=== PATIENT | female | born 1960 | race Caucasian/White ===

== ENCOUNTER 2024-05-02 12:30 | Outpatient (OUT) | payer BC, SELFPAY ==
--- NOTE | 2024-05-02 12:40 | ECG_ITS ---
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
--- NOTE | 2024-05-02 13:17 | PM.PRESUREVA ---
History of Present Illness History of Present Illness Chief complaint: right ureteral stone Narrative: Patient presents for preadmission testing. The patient reports she has a right sided kidney stone that she discovered after an ER visit in February of this year, she has ongoing back pain and has been to physical therapy, but it is now thought some of her pain could be contributed to the stone. She states at this time she is not having any urinary complaints. She denies hematuria, dysuria, fever, abdominal pain, or any other complaints. Review of Systems ROS Narrative REVIEW OF SYSTEMS: Negative except as stated in HPI, ten or more systems reviewed. Constitutional: No fever, chills, weakness ENT: No sore throat or epistaxis Cardiovascular: No edema, chest pain, palpitations, or activity intolerance Respiratory: Chronic shortness of breath and wheezing, no acute cough Musculoskeletal: Chronic back pain Gastrointestinal: No abdominal pain, constipation, diarrhea, or vomiting Genitourinary: No dysuria or hematuria Neurological: No numbness, tingling, weakness, or headache Psychiatric: No mood changes PFSH PFSH Medical History (Updated 05/02/24 @ 12:59 by Gertrudis Duckworth NP) DDD (degenerative disc disease) Arthritis ?M19.90 - Unspecified osteoarthritis, unspecified site (ICD-10) Back pain ?M54.9 - Dorsalgia, unspecified (ICD-10) Anxiety ?F41.9 - Anxiety disorder, unspecified (ICD-10) Sleep apnea ?G47.30 - Sleep apnea, unspecified (ICD-10) Chronic obstructive pulmonary disease ?J44.9 - Chronic obstructive pulmonary disease, unspecified (ICD-10) High cholesterol ?E78.00 - Pure hypercholesterolemia, unspecified (ICD-10) Hypertension ?I10 - Essential (primary) hypertension (ICD-10) Hypothyroidism ?E03.9 - Hypothyroidism, unspecified (ICD-10) S/P extracorporeal shock wave therapy ?Z98.890 - Other specified postprocedural states (ICD-10) Kidney stones ?N20.0 - Calculus of kidney (ICD-10) Ureteral stone ?N20.1 - Calculus of ureter (ICD-10) Surgical History (Updated 05/02/24 @ 12:59 by Gertrudis Duckworth NP) History of hernia repair ?Z98.890 - Other specified postprocedural states (ICD-10) ?Z87.19 - Personal history of other diseases of the digestive system (ICD-10) History of hysterectomy ?Z90.710 - Acquired absence of both cervix and uterus (ICD-10) H/O thyroidectomy ?E89.0 - Postprocedural hypothyroidism (ICD-10) S/P total hip arthroplasty ?Z96.649 - Presence of unspecified artificial hip joint (ICD-10) Family History (Updated 05/02/24 @ 12:59 by Gertrudis Duckworth NP) Other Cancer Family history of hypertension Family history of myocardial infarction Family history of stroke Social History (Updated 05/02/24 @ 12:53 by Gertrudis Duckworth NP) Within the past year, how often did you have a drink containing alcohol: 2-3 times a week Smoking status: Former smoker Highest level of school completed/degree received: high school graduate Meds Home Medications and Allergies Home Medications ?Medication ?Instructions ?Recorded ?Confirmed ?Type albuterol sulfate 90 mcg/actuation 2 inh inhalation Q4H PRN shortness 05/02/24 05/02/24 History aerosol inhaler of breath or wheezing brexpiprazole 1 mg tablet (Rexulti) 1 mg PO DAILY 05/02/24 05/02/24 History buspirone 10 mg tablet 10 mg PO DAILY 05/02/24 05/02/24 History cetirizine 10 mg tablet (Zyrtec) 10 mg PO DAILY PRN allergy symptoms 05/02/24 05/02/24 History escitalopram oxalate 20 mg tablet 20 mg PO DAILY 05/02/24 05/02/24 History ezetimibe 10 mg tablet 10 mg PO DAILY 05/02/24 05/02/24 History hydroxyzine pamoate 25 mg capsule 25 mg PO Q8H PRN anxiety 05/02/24 05/02/24 History [id number] intramuscular 1 ea IM .[id number] 05/02/24 05/02/24 History levothyroxine 100 mcg tablet 100 mcg PO DAILY 05/02/24 05/02/24 History losartan 50 mg-hydrochlorothiazide 1 tab PO DAILY 05/02/24 05/02/24 History 12.5 mg tablet meloxicam 7.5 mg tablet 7.5 mg PO DAILY 05/02/24 05/02/24 History nitrofurantoin 100 mg PO Q12H 05/02/24 05/02/24 History monohydrate/macrocrystals 100 mg capsule pravastatin 10 mg tablet 10 mg PO DAILY 05/02/24 05/02/24 History tamsulosin 0.4 mg capsule 0.4 mg PO Q24H 05/02/24 05/02/24 History Allergies Allergy/AdvReac Type Severity Reaction Status Date / Time No Known Drug Allergies Allergy Verified 05/02/24 12:48 Exam Narrative Exam Narrative: Constitutional: Awake, alert, comfortable, well-appearing, nontoxic, interactive, vital signs as charted Head: Normocephalic, atraumatic Neck: Supple, normal appearance, normal range of motion, no meningeal signs, no lymphadenopathy Respiratory: No respiratory distress, breath sounds clear Cardiovascular: Regular rate and rhythm, strong and regular heart tones Abdomen: Nontender, normal bowel sounds, soft, no CVA tenderness Musculoskeletal: Normal gait, no swelling or edema Skin: No rashes or induration, no lesions, only visible skin inspected Neuro: No neurological deficits, normal sensation Psychiatric: Oriented ?3, normal affect Assessment and Plan Assessment and Plan (1) Ureteral stone: Plan Cystoscopy, right retrograde, right ureteroscopy, holmium laser, possible right stent placement scheduled with Dr. Abraham May 03, 2024.
[2024-05-02 13:23] LABS: Basophils Absolute Auto 0.1 10^3/uL (0.0-0.1); Basophils Percent Auto 0.9 % (0.2-2.0); Eosinophils Absolute Auto 0.2 10^3/uL (0.0-0.7); Eosinophils Percent Auto 2.2 % (0.9-7.0); Hematocrit 42.5 % (36.0-48.0); Hemoglobin 13.9 g/dL (12.0-16.0); Immature Granulocytes Abs Auto 0.05 10^3/uL (0.00-0.03); Immature Granulocytes Pct Auto 0.5 % (0.0-0.5); Lymphocytes Absolute Auto 2.9 10^3/uL (1.2-3.8); Lymphocytes Percent Auto 30.6 % (20.5-60.0); Mean Corpuscular HGB Conc 32.7 g/dL (29.9-35.2); Mean Corpuscular Hemoglobin 30.4 pg (26.7-34.0); Monocytes Absolute Auto 0.9 10^3/uL (0.3-0.8); Monocytes Percent Auto 9.5 % (1.7-12.0); Neutrophils Absolute Auto 5.3 10^3/uL (1.4-6.5); Neutrophils Percent Auto 56.3 % (43.0-75.0); Platelet Count 219 10^3/uL (150-450); Red Blood Count 4.57 10^6/uL (4.20-5.40); Red Cell Distribution Width 13.4 % (11.0-15.0); White Blood Count 9.5 10^3/uL (4.0-11.0)
[2024-05-02 13:35] LABS: Anion Gap 11.8; BUN Creatinine Ratio 9.7; Calcium 9.7 mg/dL (8.5-10.1); Carbon Dioxide 26.9 mmol/L (21.0-32.0); Chloride 105 mmol/L (98-107); Estimated GFR (African America >60 (>=60 mL/min/1.73m^2); Estimated GFR (Non-African Ame >60 (>=60 mL/min/1.73m^2); Glucose 101 mg/dL (74-106); Potassium 3.7 mmol/L (3.5-5.1); Sodium 140 mmol/L (136-145)
[2024-05-02 13:42] LABS: INR 0.97; Partial Thromboplastin Time 29.1 sec (22.3-36.2); Prothrombin Time 10.3 sec (9.0-11.6)
== END 2024-05-02 12:31 | disposition home or self-care (01) ==
LOC: PST 12:36
PROVIDERS: PCP Nurse Practitioner Family; Visit Provider Urology
DX: Z01.810 Encounter for preprocedural cardiovascular examination (principal); Z01.818 Encounter for other preprocedural examination; Z01.812 Encounter for preprocedural laboratory examination; N20.1 Calculus of ureter
CPT/HCPCS: 80048; 85025; 85610; 85730; 93005; G0463

== ENCOUNTER 2024-05-03 09:28 | Day surgery (SDC) | payer BC, SELFPAY ==
[2024-05-02 13:07] VITALS: BP 139/85; PULSE 69; TEMP 36.5; O2SAT 98; BMI 34.2
[2024-05-03] VITALS (10 sets, daily range): BP systolic 116–146; BP diastolic 58–85; PULSE 67–89; TEMP 36.3–37.1; O2SAT 93–97; BMI 34.1
--- NOTE | 2024-05-03 | FL_ITS ---
[address] [address] Patient Name: LEANNE SERRANO MRN: [id number] date: 1960 Sex: F Assigned Patient Location: [facility] Current Patient Location: Accession/Order Number: [id number] Exam Date: 05/03/2024 10:45 Report Date: 05/07/2024 14:40 At the request of: DAVID WINTERS Procedure: FL fluoroscopy <1hr NON-READ EXAM: FL fluoroscopy <1hr NON-READ HISTORY: TECHNIQUE: FINDINGS: Please see Operative Report. Electronically authenticated by: RADIOLOGIST NO Date: 05/07/2024 14:40
--- NOTE | 2024-05-03 09:45 | XR_ITS ---
The [address] [address] Patient Name: LEANNE SERRANO MRN: [id number] date: 1960 Sex: F Assigned Patient Location: [facility] Current Patient Location: [facility] Accession/Order Number: [id number] Exam Date: 05/03/2024 09:50 Report Date: 05/03/2024 10:15 At the request of: DAVID WINTERS Procedure: XR chest 1V EXAM: XR chest 1V HISTORY: . SURGERY . COMPARISON: None. TECHNIQUE: Single view of the chest FINDINGS: Heart and vascularity are unremarkable. Lungs are free of focal infiltrates. Early atherosclerotic changes of the thoracic aorta are noted. Grossly no acute bony abnormality is appreciated. XR/XR chest 1V IMPRESSION: No acute heart or lung disease identified. Electronically authenticated by: BLAYNE GARCIA Date: 05/03/2024 10:15
[2024-05-03] MEDS: 0.9 % SODIUM CHLORIDE 500 ML 50 ML IV (09:55)
[2024-05-03] MEDS: CEFAZOLIN SODIUM 2 GM/50 ML D5W PREMIX IV (10:29)
--- NOTE | 2024-05-03 11:20 | P.URON_ITS ---
Urology Surgery Operative Note Operative Note Procedure Date: 05/03/24 Time Out Performed: yes Pre-op Diagnosis: Retained right ureteral calculus Post-op Diagnosis: same as pre-op Procedures performed: 1. Cystoscopy. 2. Right rigid ureteral dilation. 3. Right ureteroscopy. 4. Thulium laser lithotripsy of right ureteral calculus. 5. Stone fragment basket extraction. 6. Placement of 6 [place] variable length right ureteral stent Anesthesia: General-LMA Primary Surgeon: Jake Abraham Complications: None Estimated blood loss (mL): 5 Findings: Right ureteral calculus and distal ureteral stenosis Specimens: Right ureteral calculus fragments Drains: 6 [place] variable length right ureteral stent Indications for Procedures: This lady has a 6 to 7 mm right ureteral calculus that she has been unable to pass since February. She now presents for definitive ureteroscopic stone manipulation and right stent placement. She has signed an informed consent after all risks were explained. Detailed description of Procedure: The patient was brought to the operating room and placed on the operating room table in the supine position. SCDs were placed on the lower extremities and turned on and functioning during the entire case. Timeout was done by all parties in the room. We all agreed upon the patient's identification and the planned procedures for this patient. Genn. anesthesia was then administered. The patient was then repositioned into the modified dorsal lithotomy position. All pressure points were satisfactorily padded. Genitalia were sterilely prepped and draped in usual fashion. I started by passing a 22 [place] Olympus cystoscope per urethra and into the bladder. Careful panendoscopy revealed there was mild cystitis. No evidence of any bladder tumors or stones were noted. While using fluoroscopy, I could see her stone about 3 cm proximal to the right UO. I then passed a Glidewire through the scope and into the right ureter. It was able to go beyond the stone and into the kidney. I then used a 10 [place] rigid dilator to dilate her distal right ureter. After the cystoscope was removed I then passed a semirigid ureteroscope into the bladder and up the right ureter adjacent to the wire. I was able to get right to the stone. A 270 Angstrom laser fiber was passed through the scope. It made contact with the stone and I began doing laser lithotripsy with the thulium laser at 6 W continuously. The stone slowly steadily fragmented. After I had numerous pieces within the ureter I then used a 0 tip nitinol basket and extracted them out and dumped them in the base of the bladder. I went up and down the ureter numerous times removing fragments. Once the ureter was free of stone I then remove the cystoscope and then backloaded the cystoscope over the wire and passed it into the bladder. I then slid a 6 [place] variable length stent over the wire up into the kidney. The wire was removed and there were good curls in the kidney and in the bladder. I then used the Ilich evacuator to get all the stone pieces out from the base o f the bladder. These were sent for stone analysis. The bladder was drained of its contents and the scope was then removed. She was then transferred to a [facility] bed and wheeled to PACU in stable condition.
[2024-05-03] MEDS: SOLIFENACIN SUCCINATE 10 MG TABLET PO (12:05)
--- NOTE | 2024-05-03 12:31 | PC.NURSE ---
1215;pt voids without difficulty.
== END 2024-05-03 12:34 | disposition home or self-care (01) ==
PROVIDERS: PCP Nurse Practitioner Family; Visit Provider Urology
PROC: (CPT 918; principal; 2024-05-03 10:30)
DX: N20.1 Calculus of ureter (principal); Q62.10 Congenital occlusion of ureter, unspecified; Z90.710 Acquired absence of both cervix and uterus; Z87.891 Personal history of nicotine dependence; G47.33 Obstructive sleep apnea (adult) (pediatric); E78.5 Hyperlipidemia, unspecified; I10 Essential (primary) hypertension; E03.9 Hypothyroidism, unspecified
CPT/HCPCS: 52356; 36415; 71045; 76000; 82365; 99999; J0690; J1100; J2405; J2704; J3010